=== PATIENT | female | born 1985 ===

== ENCOUNTER 2018-06-18 06:18 | Inpatient (IN) | payer OTHER ==
[~2018-06-18] VITALS: Ht 157.5 cm; Wt 64.9 kg
[2018-06-18] MEDS ORDERED: PRENATAL FORMU1 EAC1 PO (08:22)
[2018-06-18] MEDS ORDERED: SYNTHROID88 MCG PO (08:22)
[2018-06-20] MEDS ORDERED: CODE1TAB37 PO (09:30)
== END 2018-06-20 13:48 | disposition home or self-care (01) | DRG 775 ==
LOC: LDR 06:18 → SURG-SUITE 06:18 → OB/GYN 18:19 → SURG-SUITE 19:12
PROC: 0UQMXZZ Repair Vulva, External Approach (ICD-10-PCS; principal; 2018-06-18)
PROC: 10E0XZZ Delivery of Products of Conception, External Approach (ICD-10-PCS; 2018-06-18)
PROC: 4A1HXCZ Monitoring of Products of Conception, Cardiac Rate, External Approach (ICD-10-PCS; 2018-06-18)
PROC: 4A033R1 Measurement of Arterial Saturation, Peripheral, Percutaneous Approach (ICD-10-PCS; 2018-06-18)
PROC: 3E033VJ Introduction of Other Hormone into Peripheral Vein, Percutaneous Approach (ICD-10-PCS; 2018-06-18)
DX: O70.0 First degree perineal laceration during delivery (principal); O36.8130 Decreased fetal movements, third trimester, not applicable or unspecified; Z3A.37 37 weeks gestation of pregnancy; Z37.0 Single live birth